=== PATIENT | female | born 1950 | race Caucasian/White ===

== ENCOUNTER 2025-08-29 06:05 | Day surgery (SDC) | payer OTHER, BC ==
[2025-08-24 16:28] VITALS: BMI 22.7
[2025-08-29] MEDS ORDERED: GENTAMICIN SO4 80 MG/2 ML VIAL ONE ×2 (07:34→07:55)
[2025-08-29] MEDS ORDERED: POLYMYXIN B SULFATE 500,000 UNIT VIAL ONE (07:34)
[2025-08-29] MEDS ORDERED: BUPIVACAINE HCL/PF 0.25% (2.5MG/ML) 10 ML VIAL ONE (07:35)
[2025-08-29] MEDS ORDERED: BUPIVACAINE HCL/EPINEPHRINE/PF 30 ML VIAL IJ ONE (07:35)
[2025-08-29] MEDS ORDERED: BUPIVACAINE HCL/PF 2.5 MG/ML - 30 ML VIAL IJ ONE (07:35)
[2025-08-29] MEDS ORDERED: PROPOFOL 40 ML ONE (07:45)
[2025-08-29] MEDS ORDERED: MIDAZOLAM HCL 2 MG/2 ML SINGLE DOSE VIAL ONE (07:45)
[2025-08-29] MEDS ORDERED: SUGAMMADEX SODIUM 200 MG/2 ML VIAL ONE (07:49)
[2025-08-29] MEDS ORDERED: SUCCINYLCHOLINE CHLORIDE 200 MG/10 ML SYRINGE ONE (07:49)
[2025-08-29] MEDS ORDERED: ROCURONIUM BROMIDE 50 MG/5 ML SYRINGE ONE ×2 (07:49→09:25)
[2025-08-29] MEDS ORDERED: VANCOMYCIN 1,000 MG VIAL (RESTRICTED TO ID ONLY) ONE ×2 (07:55→08:21)
[2025-08-29] MEDS: BUPIVACAINE HCL/PF 0.25% (2.5MG/ML) 10 ML VIAL IJ ONE ×2 (09:31)
[2025-08-29] MEDS ORDERED: ONDANSETRON 4 MG/2 ML VIAL ONE (10:12)
[2025-08-29] MEDS ORDERED: DEXAMETHASONE SOD PHOSPHATE 4 MG/1 ML VIAL ONE (10:12)
[2025-08-29] MEDS ORDERED: ONDANSETRON 4 MG/2 ML VIAL IVPUSH PRN (10:21)
[2025-08-29] MEDS ORDERED: LACTATED RINGERS SOLUTION 1,000 ML IV SCH (10:30)
[2025-08-29 12:47] VITALS: BP 121/69; PULSE 68; RESP 16; TEMP 97.1
== END 2025-08-29 12:20 | disposition home or self-care (01) ==
LOC: FASU 06:05
PROVIDERS: ATTEND Plastic Surgery
PROC: 0HRT0JZ Replacement of Right Breast with Synthetic Substitute, Open Approach (ICD-10-PCS; 2025-08-29)
PROC: 0HNT0ZZ Release Right Breast, Open Approach (ICD-10-PCS; principal; 2025-08-29 08:41)
PROC: 0HPT0JZ Removal of Synthetic Substitute from Right Breast, Open Approach (ICD-10-PCS; 2025-08-29 08:41)
DX: T85.44XA Capsular contracture of breast implant, initial encounter (principal); Y83.8 Other surgical procedures as the cause of abnormal reaction of the patient, or of later complication, without mention of misadventure at the time of the procedure
CPT/HCPCS: 88300-TC; 88304-TC; 94760; L8600